=== PATIENT | male | born 1975 | race Caucasian/White ===

== ENCOUNTER 2017-03-24 13:32 | Emergency (ER) | payer BC ==
[2017-03-24 13:50] VITALS: BP 113/74; PULSE 71; TEMP 97.9; BMI 23.6
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
== END 2017-03-24 15:54 | disposition home or self-care (01) ==
LOC: JERFT 13:32
DX: S62.315A Displaced fracture of base of fourth metacarpal bone, left hand, initial encounter for closed fracture (principal); S62.317A Displaced fracture of base of fifth metacarpal bone, left hand, initial encounter for closed fracture; W21.03XA Struck by baseball, initial encounter; Y93.64 Activity, baseball; Y92.320 Baseball field as the place of occurrence of the external cause; Y99.8 Other external cause status
CPT/HCPCS: 73110-TC-LT; 73130-TC-LT; 99282-25